=== PATIENT | male | born 1980 ===

== ENCOUNTER 2016-12-17 19:15 | Emergency (ER) | payer BC ==
[2016-12-17 19:16] VITALS: BMI 30.5
--- NOTE | 2016-12-17 19:47 | ED PDOC ---
HPI: Abdomen Chief Complaint (Provider): LLQ pain and lower back pain mainly on the left side History Per: Patient History/Exam Limitations: no limitations Onset/Duration Of Symptoms: Days (5 days), Gradual Outside of [place] travel?: No Current Symptoms Are (Timing): Still Present Context: Other Severity: Severe Pain Scale Rating Of: 8 Location Of Pain/Discomfort: LLQ Quality Of Discomfort: Cramping Associated Symptoms: Nausea, Diarrhea Exacerbating Factors: Movement Alleviating Factors: None Last Bowel Movement: Today <Elsie Grant - Last Filed: 12/18/16 06:00> <Martha Yanes - Last Filed: 12/18/16 15:32> Time Seen by Provider: 12/17/16 19:35 Chief Complaint (Nursing): Abdominal Pain Additional Complaint(s): Pt is a 36 y/o male with no significant medical history presenting to ED with chief complaints of low back pain mainly on the left side and LLQ abdominal pain that started 5 days ago and has gradually gotten worse. Abdominal pain is associated with nausea, and diarrhea, no vomiting. Has not taken any medication for the pain, was able to eat about 3 hours ago without vomiting. Pain is not associated with anything he can think off, does not radiate any where else and is constant. Denies any chest pain, shortness of breath, dizziness, headaches; but does admit to feeling warm this morning but did not take his temperature so unsure if he had a fever PCP: Dr. Samayoa ([place]) (Elsie Grant) Supervising Attending Note - Supervising Attending Note The Documented history was done by the: Physician Spooling Machine Operator The documented physical exam was done by the: Physician Spooling Machine Operator, Attending Physician - Attestation: I have personally seen and examined this patient.: Yes I have fully participated in the care of the patient.: Yes I have reviewed all pertinent clinical information: Yes <Martha Yanes - Last Filed: 12/18/16 15:32> Past Medical History - Medical History PMH: No Chronic Diseases Denies: Chronic Kidney Disease - Family History Family History: States: Unknown Family Hx <Elsie Grant - Last Filed: 12/18/16 06:00> <Martha Yanes - Last Filed: 12/18/16 15:32> Vital Signs: Last Vital Signs Temp 98.2 F 12/17/16 22:20 Pulse 78 12/17/16 22:20 Resp 16 12/17/16 22:20 BP 122/78 12/17/16 22:20 Pulse Ox 100 12/18/16 06:03 - Home Medications Home Medications: Ambulatory Orders Medication Instructions Recorded Hydrocodone/Acetaminophen [Vicodin 1 tab PO Q4 PRN 12/18/14 Es 300 mg-7.5 mg] DiphenhydrAMINE [Benadryl] 25 mg PO Q6 PRN #12 cap 07/09/15 Prednisone 20 mg PO BID #6 tab 07/09/15 Dicyclomine [Bentyl] 20 mg PO BID PRN #30 tab 12/17/16 Ibuprofen [Motrin Tab] 600 mg PO Q8 PRN #60 tab 12/17/16 Ondansetron ODT [Zofran ODT] 1 odt PO Q6 PRN #20 odt 12/17/16 - Allergies Allergies/Adverse Reactions: Allergies Allergy/AdvReac Type Severity Reaction Status Date / Time No Known Allergies Allergy Verified 07/09/15 07:07 Review of Systems Cardiovascular: Negative for: Chest Pain, Edema, Light Headedness Respiratory: Negative for: Cough, SOB with Exertion Gastrointestinal: Positive for: Nausea, Abdominal Pain, Diarrhea Genitourinary Male: Negative for: Dysuria, Frequency Musculoskeletal: Positive for: Back Pain. Negative for: Shoulder Pain, Leg Pain Neurological: Negative for: Weakness, Headache <Rudy,Elsie - Last Filed: 12/18/16 06:00> Physical Exam - Physical Exam Appears: Positive for: Uncomfortable Head Exam: Positive for: NORMAL INSPECTION Skin: Positive for: Normal Color Cardiovascular/Chest: Positive for: Regular Rate, Rhythm. Negative for: Chest Non Tender, Murmur Respiratory: Positive for: Normal Breath Sounds. Negative for: Crackles, Rales , Wheezing Gastrointestinal/Abdominal: Positive for: Bowel Sounds, Soft, Tenderness (LLQ tender on light and deep palpation ) Back: Positive for: Other (lower back tenderness mainly on left side ). 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 <Rudy,Elsie - Last Filed: 12/18/16 06:00> - Laboratory Results Result Diagrams: 12/17/16 20:10 12/17/16 20:10 - ECG O2 Sat by Pulse Oximetry: 100 - Progress Re-evaluation Time: 21:15 Condition: Re-examined, Improved (pain has improved with medication, so has nausea) <Elsie Grant - Last Filed: 12/18/16 06:00> - Laboratory Results Result Diagrams: 12/17/16 20:10 12/17/16 20:10 <Martha Yanes - Last Filed: 12/18/16 15:32> - Progress ED Course And Treament: Ct exam negative for any acute disease process, no colitis, no diverticulitis Pt symptoms improved with pain medication stable for discharge (Elsie Grant) Medical Decision Making <Elsie Grant - Last Filed: 12/18/16 06:00> <Martha Yanes - Last Filed: 12/18/16 15:32> Medical Decision Making: Presentation concerning diverticulitis, colitis cbc cmp lipase IV fluids Toradol for pain zofran for nausea CT abdomen (Elsie Grant) Disposition - Patient ED Disposition Is Patient to be Admitted: No - Disposition Disposition: Routine/Home Disposition Time: 22:10 <Elsie Grant - Last Filed: 12/18/16 06:00> <Martha Yanes - Last Filed: 12/18/16 15:32> - Clinical Impression Clinical Impression: Abdominal pain, Gastroenteritis - Disposition Condition: STABLE Additional Instructions: Pt advised to eat bland diet to help with nausea stay hydrated follow up with PCP within the next week Prescriptions: Dicyclomine [Bentyl] 20 mg PO BID PRN #30 tab PRN Reason: abdominal pain Ibuprofen [Motrin Tab] 600 mg PO Q8 PRN #60 tab PRN Reason: Pain, Moderate (4-7) Ondansetron ODT [Zofran ODT] 1 odt PO Q6 PRN #20 odt PRN Reason: Nausea/Vomiting Instructions: Acute Abdominal Pain (ED), Flank Pain (ED) Print Language: MALAGASY
[2016-12-17] MEDS ORDERED: Sodium Chloride 0.9% 1,000 ML IV STA (20:01)
[2016-12-17 20:17] LABS: BASO # 0.1 K/uL (0.0-0.2); BASO % 0.7 % (0.0-2.0); EOS # 0.4 K/uL (0.0-0.7); EOS % 4.9 % (0.0-4.0); HEMATOCRIT 48.4 % (35.0-51.0); LYMPH # 2.7 K/uL (1.0-4.3); LYMPH % 32.7 % (20.0-40.0); MEAN CELL VOLUME 89.3 fl (80.0-94.0); MEAN CORPUSCULAR HEMOGLOBIN 30.2 pg (27.0-31.0); MEAN CORPUSCULAR HGB CONC 33.9 g/dL (33.0-37.0); MEAN PLATELET VOLUME 8.9 fl (7.2-11.7); MONO # 0.7 K/uL (0.0-0.8); MONO % 8.2 % (0.0-10.0); NEUT # 4.4 K/uL (1.8-7.0); NEUT % 53.5 % (50.0-75.0); NRBC % 0.2 % (0.0-0.0); RED CELL DISTRIBUTION WIDTH 13.2 % (11.5-14.5); WHITE BLOOD COUNT 8.2 K/uL (4.8-10.8)
[2016-12-17 20:27] LABS: ALB/GLOB RATIO 1.6 (1.0-2.1); ALKALINE PHOSPHATASE 68 U/L (38-126); ALT/SGPT 77 U/L (21-72); AST/SGOT 34 U/L (17-59); BILIRUBIN,TOTAL 0.4 mg/dl (0.2-1.3); BLOOD UREA NITROGEN 17 mg/dl (9-20); CALCIUM 9.5 mg/dL (8.4-10.2); CARBON DIOXIDE 22 mmol/L (22-30); CHLORIDE 105 mmol/L (98-107); GFR AFRICAN-AMERICAN > 60; GLUCOSE,RANDOM 113 mg/dL (75-110); LIPASE 111 U/L (23-300); SODIUM 139 mmol/l (132-148); TOTAL PROTEIN 7.6 G/DL (6.3-8.2)
[2016-12-17 20:53] LABS: RBC URINE < 1 /hpf (0-3); URINE BILIRUBIN NEGATIVE (NEGATIVE); URINE BLOOD SMALL (NEGATIVE); URINE COLOR STRAW (YELLOW); URINE GLUCOSE (UA) NEG (Normal); URINE KETONE NEGATIVE (NEGATIVE); URINE LEUKOCYTE ESTERASE NEG Leu/uL (Negative); URINE PROTEIN NEGATIVE (NEGATIVE); URINE UROBILINOGEN 0.2-1.0 mg/dL (0.2-1.0)
[2016-12-17] MEDS ORDERED: Sodium Chloride 0.9% 50 ML IV ONE (20:59)
[2016-12-17] MEDS ORDERED: Iohexol 300 100 ML IJ ONE (20:59)
[2016-12-17 22:22] VITALS: BP 122/78; PULSE 78; RESP 16; TEMP 98.2
[2016-12-18 06:03] VITALS: O2SAT 100
--- NOTE | 2016-12-18 11:05 | CT ---
PROCEDURE: CT Abdomen and Pelvis with contrast HISTORY: LLQ pain COMPARISON: None available. TECHNIQUE: Contrast dose: 98 mL Omnipaque Radiation dose: Total exam DLP = 1501.75 mGy-cm. This CT exam was performed using one or more of the following dose reduction techniques: Automated exposure control, adjustment of the mA and/or kV according to patient size, and/or use of iterative reconstruction technique. FINDINGS: LOWER THORAX: No visible consolidation, pleural effusion, or pneumothorax. LIVER: Hypoattenuation of the liver compatible with hepatic steatosis. GALLBLADDER AND BILE DUCTS: Unremarkable. PANCREAS: Unremarkable. SPLEEN: Unremarkable. ADRENALS: Unremarkable. KIDNEYS AND URETERS: The kidneys enhance symmetrically. No hydronephrosis or obstructing calculus identified. VASCULATURE: No aortic aneurysm. BOWEL: Stomach is nondistended. Lack of oral contrast limits evaluation for bowel pathology. Bowel loops appear within normal limits of caliber without evidence of obstruction. APPENDIX: The appendix appears within normal limits of caliber. No secondary signs of acute appendicitis. PERITONEUM: No significant free fluid. No definite free air. LYMPH NODES: No bulky adenopathy identified. BLADDER: Unremarkable. REPRODUCTIVE: Unremarkable. BONES: No acute osseous abnormality is detected. OTHER FINDINGS: None. IMPRESSION: Hepatic steatosis. Preliminary impression was provided by [facility].
== END 2016-12-17 22:23 | disposition home or self-care (01) ==
LOC: H.ER 19:15
DX: K52.9 Noninfective gastroenteritis and colitis, unspecified (principal); K76.0 Fatty (change of) liver, not elsewhere classified; R11.0 Nausea; R19.7 Diarrhea, unspecified
CPT/HCPCS: 74177; 80053; 81003; 83605; 83690; 85025; 96361; 96374; 96375; 99283; J1885; J2405; J7040; Q9967

== ENCOUNTER 2017-09-27 17:15 | Emergency (ER) | payer BC ==
[2017-09-27 17:15] VITALS: BMI 30.5
[2017-09-27 17:20] VITALS: PULSE 76
[2017-09-27] MEDS ORDERED: Sodium Chloride 0.9% 1,000 ML IV STA (18:04)
--- NOTE | 2017-09-27 18:07 | ED PDOC ---
HPI: Back Time Seen by Provider: 09/27/17 18:04 Chief Complaint (Nursing): Back Pain Chief Complaint (Provider): back pain History Per: Patient (37 y/o male recent toe sx left foot here for evaluation of back pain that began last night while laying in bed. Notes radiation to left side of body described as crampy discomfort. Has been taking keflex for foot wound but notes stomach irritation and watery diarrhea so has stopped.) Past Medical History Reviewed: Historical Data, Nursing Documentation, Vital Signs Vital Signs: Last Vital Signs Temp 98.1 F 09/27/17 17:19 Pulse 76 09/27/17 17:19 Resp 18 09/27/17 17:19 BP 119/76 09/27/17 17:19 Pulse Ox 99 09/27/17 17:19 - Medical History PMH: Denies: Chronic Kidney Disease - Family History Family History: States: Unknown Family Hx - Home Medications Home Medications: Ambulatory Orders Medication Instructions Recorded Hydrocodone/Acetaminophen [Vicodin 1 tab PO Q4 PRN 12/18/14 Es 300 mg-7.5 mg] DiphenhydrAMINE [Benadryl] 25 mg PO Q6 PRN #12 cap 07/09/15 Prednisone 20 mg PO BID #6 tab 07/09/15 Dicyclomine [Bentyl] 20 mg PO BID PRN #30 tab 12/17/16 Ibuprofen [Motrin Tab] 600 mg PO Q8 PRN #60 tab 12/17/16 Ondansetron ODT [Zofran ODT] 1 odt PO Q6 PRN #20 odt 12/17/16 - Allergies Allergies/Adverse Reactions: Allergies Allergy/AdvReac Type Severity Reaction Status Date / Time No Known Allergies Allergy Verified 07/09/15 07:07 Review of Systems ROS Statement: Except As Marked, All Systems Reviewed And Found Negative Physical Exam - Reviewed Nursing Documentation Reviewed: Yes Vital Signs Reviewed: Yes - Physical Exam Appears: Positive for: Well, Non-toxic, No Acute Distress Head Exam: Positive for: ATRAUMATIC, NORMAL INSPECTION, NORMOCEPHALIC Skin: Positive for: Normal Color, Warm, DRY Eye Exam: Positive for: EOMI, Normal appearance, PERRL ENT: Positive for: Normal ENT Inspection Neck: Positive for: Normal, Painless ROM Cardiovascular/Chest: Positive for: Regular Rate, Rhythm Respiratory: Positive for: CNT, Normal Breath Sounds Gastrointestinal/Abdominal: Positive for: Normal Exam, Bowel Sounds, Soft, Tenderness (luq/flank tenderness) Back: Positive for: Normal Inspection, Other (paralumber left sided tenderness.) Extremity: Positive for: Normal ROM Neurologic/Psych: Positive for: Alert, Oriented - Laboratory Results Result Diagrams: 09/27/17 18:34 09/27/17 18:34 Urine dip results: Positive for: Blood (trace blood). Negative for: Leukocyte Esterase, Nitrate, Ketones, Glucose, Bilirubin - ECG O2 Sat by Pulse Oximetry: 99 - Progress ED Course And Treament: pepcid 20 mg iv x 1 dose toradol 30 mg iv x 1 dose NS 1 liter [address] abd/pelvis pending: Disposition - Clinical Impression Clinical Impression: Back pain - Patient ED Disposition Is Patient to be Admitted: Transfer of Care - Disposition Disposition: Transfer of Care Disposition Time: 20:00 Condition: FAIR Forms: [facility] [employer] (Tajik) Patient Signed Over To: Dolores Dominguez Handoff Comments: pending ct abd/pelvis
[2017-09-27 18:40] LABS: BASO % 0.3 % (0.0-2.0); EOS # 0.3 K/uL (0.0-0.7); EOS % 3.2 % (0.0-4.0); HEMOGLOBIN 17.2 g/dL (12.0-18.0); LYMPH # 2.4 K/uL (1.0-4.3); LYMPH % 27.4 % (20.0-40.0); MEAN CELL VOLUME 89.1 fl (80.0-94.0); MEAN CORPUSCULAR HEMOGLOBIN 30.7 pg (27.0-31.0); MEAN CORPUSCULAR HGB CONC 34.5 g/dL (33.0-37.0); MEAN PLATELET VOLUME 9.6 fl (7.2-11.7); MONO # 0.9 K/uL (0.0-0.8); MONO % 9.9 % (0.0-10.0); NEUT # 5.3 K/uL (1.8-7.0); NEUT % 59.2 % (50.0-75.0); NRBC % 0.4 % (0.0-0.0); RBC 5.6 Mil/uL (4.40-5.90); WHITE BLOOD COUNT 8.9 K/uL (4.8-10.8)
[2017-09-27 18:45] LABS: URINE BILIRUBIN NEGATIVE (NEGATIVE); URINE BLOOD SMALL (NEGATIVE); URINE CLARITY CLEAR (Clear); URINE COLOR STRAW (YELLOW); URINE GLUCOSE (UA) NEG (Normal); URINE LEUKOCYTE ESTERASE NEG Leu/uL (Negative); URINE NITRATE NEGATIVE (NEGATIVE); URINE PROTEIN NEGATIVE (NEGATIVE); URINE UROBILINOGEN 0.2-1.0 mg/dL (0.2-1.0)
[2017-09-27 19:19] LABS: ALB/GLOB RATIO 1.4 (1.0-2.1); ALBUMIN 4.7 g/dL (3.5-5.0); ALT/SGPT 100 U/L (21-72); AST/SGOT 75 U/L (17-59); BLOOD UREA NITROGEN 17 mg/dl (9-20); CALCIUM 9.8 mg/dL (8.4-10.2); GFR AFRICAN-AMERICAN > 60; GFR NON-AFRICAN AMERICAN > 60; LIPASE 135 U/L (23-300)
--- NOTE | 2017-09-27 20:21 | CT ---
EXAM: CT Abdomen and Pelvis Without Intravenous Contrast EXAM DATE/TIME: 09/27/2017 7:21 PM CLINICAL HISTORY: 37 years old, male; Pain; Abdominal pain; Flank; Left; Additional info: Renal colic/left flank tenderness TECHNIQUE: Axial computed tomography images of the abdomen and pelvis without intravenous contrast. All CT scans at this facility use one or more dose reduction techniques, viz.: automated exposure control; ma/kV adjustment per patient size (including targeted exams where dose is matched to indication; i.e. head); or iterative reconstruction technique. Coronal and sagittal reformatted images were created and reviewed. COMPARISON: CT - ABD PELVIS IV CONTRAST ONLY 2016-12-17 21:20 FINDINGS: Lower thorax: Heart size is normal. There is minimal scarring at the lung bases. There is no focal consolidation ABDOMEN: Liver: unremarkable Gallbladder and bile ducts: unremarkable Pancreas: unremarkable Spleen: unremarkable Adrenals: unremarkable Kidneys and ureters: Kidneys and ureters are unremarkable. There are no renal or ureteral stones. Stomach and bowel: The stomach is almost empty. Rotation is normal. Proximal small bowel is mildly distended with fluid and air. There is no obstruction. Ileocecal region is unremarkable. Appendix and terminal ileum are unremarkable.Colon is incompletely distended which limits evaluation. There is scattered diverticulosis Appendix: See stomach and bowel PELVIS: Bladder: unremarkable Reproductive: Seminal vesicles and prostate are unremarkable. ABDOMEN and PELVIS: Intraperitoneal space: There is no free air or free fluid. Bones/joints: There are no acute osseous abnormalities. Soft tissues: unremarkable Vasculature: Vascular structures are unremarkable. Lymph nodes: There is no pathologic adenopathy. IMPRESSION: No acute solid visceral or bowel abnormality, no renal or ureteral stones or hydronephrosis Additional nonemergent findings as described above.
--- NOTE | 2017-09-27 20:30 | ED PDOC ---
- Laboratory Results Result Diagrams: 09/27/17 18:34 09/27/17 18:34 - ECG O2 Sat by Pulse Oximetry: 99 - Progress ED Course And Treament: Case endorsed to singer songwriter from [facility] pending CT EXAM: CT Abdomen and Pelvis Without Intravenous Contrast EXAM DATE/TIME: 09/27/2017 7:21 PM CLINICAL HISTORY: 37 years old, male; Pain; Abdominal pain; Flank; Left; Additional info: Renal colic/left flank tenderness TECHNIQUE: Axial computed tomography images of the abdomen and pelvis without intravenous contrast. All CT scans at this facility use one or more dose reduction techniques, viz.: automated exposure control; ma/kV adjustment per patient size (including targeted exams where dose is matched to indication; i.e. head); or iterative reconstruction technique. Coronal and sagittal reformatted images were created and reviewed. COMPARISON: CT - ABD PELVIS IV CONTRAST ONLY 2016-12-17 21:20 FINDINGS: Lower thorax: Heart size is normal. There is minimal scarring at the lung bases. There is no focal consolidation ABDOMEN: Liver: unremarkable Gallbladder and bile ducts: unremarkable Pancreas: unremarkable Spleen: unremarkable Adrenals: unremarkable Kidneys and ureters: Kidneys and ureters are unremarkable. There are no renal or ureteral stones. Stomach and bowel: The stomach is almost empty. Rotation is normal. Proximal small bowel is mildly distended with fluid and air. There is no obstruction. Ileocecal region is unremarkable. Appendix and terminal ileum are unremarkable.Colon is incompletely distended which limits evaluation. There is scattered diverticulosis Appendix: See stomach and bowel PELVIS: Bladder: unremarkable Reproductive: Seminal vesicles and prostate are unremarkable. ABDOMEN and PELVIS: Intraperitoneal space: There is no free air or free fluid. Bones/joints: There are no acute osseous abnormalities. Soft tissues: unremarkable Vasculature: Vascular structures are unremarkable. Lymph nodes: There is no pathologic adenopathy. IMPRESSION: No acute solid visceral or bowel abnormality, no renal or ureteral stones or hydronephrosis Additional nonemergent findings as described above. Patient educated on findings, discharged with rx naproxen, pepcid, flexeril. Advised follow up PMD 2-3 days. Return precautions given. Disposition - Clinical Impression Clinical Impression: Back pain - POA Present On Arrival: None - Disposition Disposition: Routine/Home Disposition Time: 20:41 Condition: IMPROVED Prescriptions: Cyclobenzaprine [Cyclobenzaprine HCl] 10 mg PO BID PRN #14 tab PRN Reason: Muscle Spasm Famotidine [Pepcid] 20 mg PO BID #14 tab Naproxen [Naprosyn] 500 mg PO Q12 PRN #14 tablet PRN Reason: Pain, Moderate (4-7) Instructions: Low Back Pain in Adults Forms: [facility] (Korean) Print Language: AMHARIC
[2017-09-27 21:10] VITALS: BP 105/58; RESP 16; TEMP 98.6; O2SAT 98
== END 2017-09-27 21:05 | disposition home or self-care (01) ==
LOC: H.ER 17:15
DX: M54.5 Low back pain (principal); R10.9 Unspecified abdominal pain
CPT/HCPCS: 74176; 80053; 81003; 83690; 85025; 87086; 96374; 96375; 99284; J1885; J7040

== ENCOUNTER 2017-11-28 07:03 | Day surgery (SDC) | payer BC ==
[2017-11-28] MEDS ORDERED: Lactated Ringer's 500 ML IV ONE (07:51)
[2017-11-28] MEDS ORDERED: Propofol 10 mg/ml Inj (20 ML) ONE (08:13)
[2017-11-28 08:58] VITALS: O2SAT 96
[2017-11-28 09:11] VITALS: BP 101/60; PULSE 62; RESP 20; TEMP 96.8
== END 2017-11-28 11:41 | disposition home or self-care (01) ==
LOC: H.ENDO 07:03
PROVIDERS: ATTEND Internal Medicine Gastroenterology
DX: K64.1 Second degree hemorrhoids (principal); D12.0 Benign neoplasm of cecum; R19.7 Diarrhea, unspecified; R13.10 Dysphagia, unspecified; K29.70 Gastritis, unspecified, without bleeding; K31.89 Other diseases of stomach and duodenum
CPT/HCPCS: 43239; 45380; 88305; J2001; J2704; J7120